=== PATIENT | female | born 1990 | race Caucasian/White ===

== ENCOUNTER → 2018-02-18 | Outpatient (CLI) | payer OTHER | LOC: FIMAGING 09:28 | PROVIDERS: ATTEND Physician Assistant | DX: N63.11 Unspecified lump in the right breast, upper outer quadrant (principal) ==

== ENCOUNTER 2018-03-29 20:32 | Emergency (ER) | payer OTHER ==
[2018-03-29] MEDS ORDERED: HYDROCODONE/APAP 5/325 TAB PO ONE (20:49)
[2018-03-29] MEDS ORDERED: IBUPROFEN 600 MG TAB PO ONE (20:49)
--- NOTE | 2018-03-29 22:15 | EDPHY ---
H & P Stated Complaint: left knee injury - Personal History LMP (Females 10-55): 15-21 Days Ago - Medical/Surgical History Hx Asthma: No Hx Chronic Respiratory Disease: No Hx Diabetes: No Hx Cardiac Disease: No Hx Renal Disease: No Hx Cirrhosis: No Hx Alcoholism: No Hx HIV/AIDS: No Hx Splenectomy or Spleen Trauma: No - Social History Smoking Status: Never smoked Time Seen by Provider: 03/29/18 21:00 HPI/ROS: Chief complaint: Left knee injury History of present illness: This is a 27-year-old female who presents to the emergency department for a left knee injury. Patient was rock climbing when she fell a few feet off of a boulder problem, hyperextending her knee. She saw her kneecap move out to the side. It quickly popped back into place. Since then she has had pain. Worse with movement. She denies injury to or pain elsewhere in the body including the rest the left lower extremity or in the low back. No report of open wounds. No paresthesias. No abnormal coolness in the leg. (Michael Luna) - Physical Exam Exam: General: Alert, nontoxic Skin: No open wounds to the left lower extremity Musculoskeletal: Diffuse tenderness to the left knee anteriorly. She has difficulty flexing extending it. The rest of the left lower leg is nontender. She is moving the digits, ankle and hip well. The spine is nontender to palpation along its entire length. Vascular: DP and PT pulses 2+. Neurologic: Sensation intact throughout the left lower extremity. (Michael Luna) Constitutional: Initial Vital Signs Blood Pressure 118/64 03/29/18 20:36 O2 Delivery Mode Room Air Allergies/Adverse Reactions: No Known Allergies Allergy (Unverified 03/29/18 20:36) Home Medications: Medication Instructions Recorded NK [No Known Home Meds] 03/29/18 Medical Decision Making - Diagnostics Imaging: I viewed and interpreted images myself Procedures: Procedure: Splint placement. A Velcro knee immobilizing splint was applied. After application of the splint I returned and re-examined the patient. The splint was adequately immobilizing the joint and distal to the splint the patient's circulation and sensation was intact. Patient is given crutches. (Michael Luna) ED Course/Re-evaluation: Patient seen under the supervision of my secondary supervising physician Dr. Luisa Aguilar. Patient presents for a left knee injury. The leg is neurovascularly intact. By history and physical exam no evidence of further trauma to the body. It does sound like she potentially dislocated her patella but it spontaneously reduced. X-ray is negative. She is splinted. She is given crutches. She is referred to Orthopedics for continued evaluation and care. Return precautions are given. (Michael Luna) The patient was evaluated and managed by the physician insurance underwriting assistant. I have reviewed this chart and I agree with the findings and plan of care as documented , as indicated by my signature. I am the secondary supervising physician. ( Luisa Aguilar) Differential Diagnosis: Included but not limited to contusion, sprain or strain, meniscal injury, fracture, patellar dislocation (Michael Luna) - Data Points Medications Given: Discontinued Medications Hydrocodone Bitart/Acetaminophen ([place] 5/325) 1 tab PO EDNOW ONE Stop: 03/29/18 20:50 Last Admin: 03/29/18 21:01 Dose: 1 tab Ibuprofen (Motrin) 600 mg PO EDNOW ONE Stop: 03/29/18 20:50 Last Admin: 03/29/18 21:01 Dose: 600 mg Departure - Departure Disposition: Home, Routine, Self-Care Clinical Impression: Knee injury Condition: Good Instructions: Knee Immobilizer (ED) Additional Instructions: Follow-up with orthopedics this week for continued evaluation and care Use ibuprofen 600 mg 3 times a day for the next 2-3 days for pain and swelling Ice the injury, 20 min on, 3 times daily for the next 3 days Elevate the injury as much as possible If symptoms worsen or new symptoms develop return to the emergency room for recheck Referrals: NONE *PRIMARY CARE P,. [Primary Care Provider] - As per Instructions Shakeel Pablo MD [Medical Doctor] - As per Instructions
[2018-03-29 22:44] VITALS: BP 128/82
== END 2018-03-29 22:44 | disposition home or self-care (01) ==
DX: S89.92XA Unspecified injury of left lower leg, initial encounter (principal); W17.89XA Other fall from one level to another, initial encounter; Y99.8 Other external cause status; Y93.31 Activity, mountain climbing, rock climbing and wall climbing
CPT/HCPCS: L1830

== ENCOUNTER → 2018-09-16 | Outpatient (CLI) | payer OTHER | LOC: FIMAGING 15:28 | PROVIDERS: ATTEND Physician Assistant | DX: N63.11 Unspecified lump in the right breast, upper outer quadrant (principal) ==